=== PATIENT | female | born 2000 | race Caucasian/White ===

== ENCOUNTER 2019-07-19 21:09 | Emergency (ER) | payer OTHER ==
[2019-07-19 21:28] VITALS: BP 139/69
--- NOTE | 2019-07-19 21:53 | UC ---
Lower Extremity/Ankle HPI - HPI Summary HPI Summary: 19-year-old female presents with complaints of left foot pain. States earlier today she was playing soccer with some friends and she accidentally caused an inversion injury to her foot. States she was initially able to walk and bear weight but as the day went on she developed increasing pain, swelling, and bruising to the foot to the point where it was too painful to bear weight. Denies any numbness or tingling. - History of Current Complaint Chief Complaint: UCLowerExtremity Stated Complaint: ANKLE INJURY Time Seen by Provider: 07/19/19 21:17 Hx Last Menstrual Period: 06/28/19 Pain Intensity: 7 - Allergies/Home Medications Allergies/Adverse Reactions: Allergies Allergy/AdvReac Type Severity Reaction Status Date / Time azithromycin Allergy Hives Verified 07/19/19 21:28 [From Zithromax Z-Les] Home Medications: Home Medications NK [No Home Medications Reported] 07/19/19 [History Confirmed 07/19/19] PMH/Surg Hx/FS Hx/Imm Hx Previously Healthy: Yes - Denies signifcant PMH - Surgical History Surgical History: None - Family History Known Family History: Positive: Non-Contributory - Social History Occupation: Student Lives: Dormitory/Roommates Alcohol Use: Occasionally Substance Use Type: None Smoking Status (MU): Never Smoked Tobacco Review of Systems All Other Systems Reviewed And Are Negative: Yes Constitutional: Positive: Negative Skin: Positive: Bruising Respiratory: Positive: Negative Cardiovascular: Positive: Negative Gastrointestinal: Positive: Negative Genitourinary: Positive: Negative Motor: Negative: Weakness Neurovascular: Negative: Decreased Sensation Musculoskeletal: Positive: Other: - See HPI Neurological: Positive: Negative Is Patient Immunocompromised?: No Physical Exam - Summary Physical Exam Summary: GENERAL APPEARANCE: Well developed, well nourished, alert and cooperative, and appears to be in no acute distress. CARDIAC: Normal S1 and S2. No S3, S4 or murmurs. Rhythm is regular. There is no peripheral edema, cyanosis or pallor. Extremities are warm and well perfused. Capillary refill is less than 2 seconds. Peripheral pulses intact. LUNGS: Clear to auscultation without rales, rhonchi, wheezing or diminished breath sounds. ABDOMEN: Positive bowel sounds. Soft, nondistended, nontender. No guarding or rebound. No masses or hepatosplenomegally. MUSKULOSKELETAL: Normal muscular development. Normal gait. EXTREMITIES: Tenderness over the proximal fifth metatarsal without gross deformity. Significant ecchymosis and mild edema noted to the dorsolateral aspect of the left foot. Circulation and sensation were intact. SKIN: Skin normal color, texture and turgor. Triage Information Reviewed: Yes Vital Signs: Initial Vital Signs Temp 98.7 F 07/19/19 21:23 Pulse 75 07/19/19 21:23 Resp 18 07/19/19 21:23 BP 139/69 07/19/19 21:23 Pulse Ox 98 07/19/19 21:23 Vital Signs Reviewed: Yes Diagnostics - Radiology No standard instances Radiology Interpretation Completed By: ED Physician - Nondisplaced closed fracture of the proximal 5th metatarsal Lower Extremity Course/Dx - Course Course Of Treatment: 19-year-old female presents with complaints of left foot pain. States earlier today she was playing soccer with some friends and she accidentally caused an inversion injury to her foot. States she was initially able to walk and bear weight but as the day went on she developed increasing pain, swelling, and bruising to the foot to the point where it was too painful to bear weight. Denies any numbness or tingling. Afebrile. Vital signs stable. Patient tenderness over the proximal fifth metatarsal without gross deformity. There was significant ecchymosis and mild edema noted to the dorsolateral aspect of the left foot. Circulation and sensation were intact. Preliminary reading of the x-ray shows a nondisplaced closed fracture of the proximal fifth metatarsal. Patient was placed in an Jacques wrap and cam boot by the RN. Circulation and sensation were intact pre-and post-application. Patient was provided crutches and recommended nonweightbearing for the next 2 days followed by progressive increase in weightbearing as tolerated. She has also been recommended conservative treatment including [id number] analgesics and RICE. She is to follow-up with orthopedic surgery in 5-7 days for evaluation and treatment. Anticipatory guidance and warning symptoms are reviewed with the patient. Verbalizes understanding and agrees with plan of care - Differential Dx/Diagnosis Differential Diagnosis/HQI/PQRI: Contusion, Fracture (Closed), Sprain Provider Diagnosis: Closed fracture of fifth metatarsal bone of left foot Discharge ED - Sign-Out/Discharge Documenting (check all that apply): Patient Departure All imaging exams completed and their final reports reviewed: No - Discharge Plan Condition: Stable Disposition: HOME Patient Education Materials: Crutch Instructions (ED), Foot Fracture in Adults (ED) Referrals: No Primary Care Phys,NOPCP [Primary Care Provider] - Morteza Silva MD [Medical Doctor] - 5 Days Additional Instructions: The x-ray performed in the clinic today showed evidence of a fracture of the proximal 5th metatarsal of the left foot. The x-ray will be reviewed by the radiologist tomorrow and we will notify you if they see anything that changes care. Rest the foot as much as possible. Use the CAM boot and Jacques wrap was applied in the clinic today until you have followed up with orthopedic surgery. You may remove to shower and sleep but should wear at all other times. Use the crutches that were provided to you to be nonweightbearing for the next 2 days. You may then begin to slowly increase weightbearing as tolerated. Apply ice to the affected area for 15-20 minutes at least 4 times a day to help with the pain and swelling. Elevate the foot to help reduce swelling. Take acetaminophen (Tylenol) or ibuprofen (Advil, Motrin) according to directions as needed for pain. Follow up with orthopedic surgery in 5-7 days if symptoms do not improve. Call for an appointment. Seek immediate medical attention if you have severe pain not managed with pain medication, you are unable to walk or bear any weight, develop numbness or tingling in the foot or toes, or have any worsening of symptoms. - Billing Disposition and Condition Condition: STABLE Disposition: Home
--- NOTE | 2019-07-20 09:26 | UC ---
- Progress Note Progress Note: Patient Name: BLAIRE DENNISON Medical Record#: [id number] Ordering Physician: Faustino Syed NP Acct.#: [id number] : 2000 Age: 19 Sex: F Location: [facility] Exam Date: 07/19/192122 ADM Status: [facility] Order Information: FOOT LEFT 3+ VWS Accession Number: [id number] CPT: 41677 Indication: Left foot injury. 3 views of the left foot demonstrates fracture through the base of the fifth metacarpal. No significant loosening is noted. IMPRESSION: Fracture through the base of the fifth metatarsal. R0 Preliminary Imaging Read R0 <Electronically signed by Jaci Trinidad MD in OV> 07/20/19922 Dictated By: Jaci Trinidad MD Dictated Date/Time: 07/20/19921 Transcribed Date/Time: 07/20/19921 Copy to: CC:Faustino Syed NP; No Primary Care Phys,NOPCP ; Claudio Pandey MD Imaging - [facility] Imaging - [facility] [address] [place] [address] ph ([phone]) ph ([phone]) ph ([phone]) This report is only to be considered final once signed by the Provider(s) as displayed in the "<Electronically Signed by >" field (s). Absence of a signature indicates the report is in a draft status and still needs to be finalized. In the event this document was created by someone other than the signing Provider, the individual initiating the document will be listed in the "Entered by:" or "Dictated by:" [email or web address]. 1 of 1 Course/Dx - Diagnoses Provider Diagnoses: Closed fracture of fifth metatarsal bone of left foot Discharge ED - Sign-Out/Discharge Documenting (check all that apply): Post-Discharge Follow Up All imaging exams completed and their final reports reviewed: Yes - Discharge Plan Condition: Stable Disposition: HOME Patient Education Materials: Crutch Instructions (ED), Foot Fracture in Adults (ED) Referrals: Morteza Silva MD [Medical Doctor] - 5 Days No Primary Care Phys,NOPCP [Primary Care Provider] - Additional Instructions: The x-ray performed in the clinic today showed evidence of a fracture of the proximal 5th metatarsal of the left foot. The x-ray will be reviewed by the radiologist tomorrow and we will notify you if they see anything that changes care. Rest the foot as much as possible. Use the CAM boot and Jacques wrap was applied in the clinic today until you have followed up with orthopedic surgery. You may remove to shower and sleep but should wear at all other times. Use the crutches that were provided to you to be nonweightbearing for the next 2 days. You may then begin to slowly increase weightbearing as tolerated. Apply ice to the affected area for 15-20 minutes at least 4 times a day to help with the pain and swelling. Elevate the foot to help reduce swelling. Take acetaminophen (Tylenol) or ibuprofen (Advil, Motrin) according to directions as needed for pain. Follow up with orthopedic surgery in 5-7 days if symptoms do not improve. Call for an appointment. Seek immediate medical attention if you have severe pain not managed with pain medication, you are unable to walk or bear any weight, develop numbness or tingling in the foot or toes, or have any worsening of symptoms. - Billing Disposition and Condition Condition: STABLE Disposition: Home
== END 2019-07-19 22:16 | disposition home or self-care (01) ==
LOC: UCEAST 21:09
DX: S92.352A Displaced fracture of fifth metatarsal bone, left foot, initial encounter for closed fracture (principal); X50.9XXA Other and unspecified overexertion or strenuous movements or postures, initial encounter; Y93.66 Activity, soccer; Y92.322 Soccer field as the place of occurrence of the external cause; Y99.8 Other external cause status
CPT/HCPCS: 99203; G0463